=== PATIENT | male | born 1975 | race Caucasian/White ===

== ENCOUNTER 2016-11-29 00:13 | Emergency (ER) | payer OTHER ==
[~2016-11-29 00:13] MED LIST: ALDACTONE50 MG PO; BACTRIM DS TAB1 EACH PO; LASIX40 MG PO; LEVAQUIN500 MG PO; LEVAQUIN750 MG PO; NEXIUM40 MG PO; POTASSIUM CHLO10 ME1 PO; PROTONIX40 MG PO; XIFAXAN550 MG PO
[2016-11-29 01:04] LABS: BASO % 0.3 % (0.2-1.2); EOS # 0.1 10_X3_uL (0.0-0.5); EOS % 2.5 % (0.8-7.0); GRAN # 2.2 10_X3_uL (1.8-5.4); GRAN % 60.4 % (34.0-67.9); HEMOGLOBIN 12.5 g/dL (13.7-17.5); LYMPH % 28.8 % (21.8-53.1); MEAN CORPUSCULAR HEMOGLOBIN 34.4 pg (27.0-33.0); MEAN CORPUSCULAR HGB CONC 33.8 g/dL (32.0-36.0); MEAN CORPUSCULAR VOLUME 101.9 fL (79-92); MEAN PLATELET VOLUME 11.3 fl (7.5-11.5); MONO # 0.3 10_X3_uL (0.3-0.8); PARTIAL THROMBOPLASTIN TIME 31.7 SECONDS (21.3-29.3); PLATELET COUNT 45 x10_3/uL (163-337); RED BLOOD COUNT 3.63 x10_6/uL (4.6-6.1); RED CELL DISTRIBUTION WIDTH 16.6 % (11.6-14.4); WHITE BLOOD COUNT 3.6 x10_3/uL (4.2-9.1)
[2016-11-29 01:10] LABS: ALBUMIN 2.5 gm/dL (3.4-5.0); ALKALINE PHOSPHATASE 110 U/L (50-136); ALT/SGPT 30 U/L (7.53-40.17); AMYLASE 55 U/L (15.62-74.58); AST/SGOT 65 U/L (6.66-35.34); BILIRUBIN,TOTAL 2.99 mg/dL (0.0-1.0); BLOOD UREA NITROGEN 9 mg/dL (7-18); CARBON DIOXIDE 27 mmol/L (21-32); CREATININE 0.6 mg/dL (0.6-1.3); GLUCOSE,RANDOM 105 mg/dL (70-99); LIPASE 42 U/L (6.75-60.75); TOTAL PROTEIN 5.4 gm/dL (6.4-8.2)
[2016-11-29 01:33] LABS: POTASSIUM 3.2 mmol/L (3.5-5.1); SODIUM 142 mmol/L (136-145)
[2016-11-29 01:35] LABS: INR 1.5 (0.9-1.1); PROTHROMBIN TIME (PATIENT) 15.3 SECONDS (9.9-11.1)
[2016-11-29 02:45] LABS: URINE BILIRUBIN 2+ (NEGATIVE); URINE BLOOD 3+ (NEGATIVE); URINE GLUCOSE (UA) NORMAL (NORMAL); URINE KETONE TRACE (NEGATIVE); URINE LEUKOCYTE ESTERASE TRACE (NEGATIVE); URINE NITRATE POSITIVE (NEGATIVE); URINE PROTEIN 1+ (NEGATIVE)
[2016-11-29 03:00] LABS: URINE RBC TNTC /[HPF] (0-2); URINE WBC 0-5 /[HPF] (0-3)
== END 2016-11-29 03:59 | disposition home or self-care (01) ==
LOC: ER 00:13
PROVIDERS: Emergency Medicine
DX: N39.0 Urinary tract infection, site not specified (principal); K74.60 Unspecified cirrhosis of liver; R31.9 Hematuria, unspecified; I85.00 Esophageal varices without bleeding; Z90.49 Acquired absence of other specified parts of digestive tract; Z98.890 Other specified postprocedural states; R11.10 Vomiting, unspecified; Z88.0 Allergy status to penicillin; Z88.1 Allergy status to other antibiotic agents; Z79.899 Other long term (current) drug therapy
CPT/HCPCS: 36415; 74150; 80053; 81001; 82150; 83690; 85025; 85610; 85730; 99283-25

== ENCOUNTER 2016-12-01 18:11 | Emergency (ER) | payer OTHER ==
[2016-12-01 19:43] LABS: URINE BILIRUBIN 1+ (NEGATIVE); URINE BLOOD 3+ (NEGATIVE); URINE GLUCOSE (UA) NORMAL (NORMAL); URINE KETONE TRACE (NEGATIVE); URINE LEUKOCYTE ESTERASE TRACE (NEGATIVE); URINE NITRATE POSITIVE (NEGATIVE); URINE PROTEIN 1+ (NEGATIVE)
[2016-12-01 19:49] LABS: BASO % 0.3 % (0.2-1.2); EOS # 0.1 10_X3_uL (0.0-0.5); EOS % 2.8 % (0.8-7.0); GRAN # 2.1 10_X3_uL (1.8-5.4); GRAN % 65.6 % (34.0-67.9); HEMOGLOBIN 13.4 g/dL (13.7-17.5); LYMPH # 0.8 10_X3_uL (1.3-3.6); LYMPH % 25.5 % (21.8-53.1); MEAN CORPUSCULAR HEMOGLOBIN 34.4 pg (27.0-33.0); MEAN CORPUSCULAR HGB CONC 33.5 g/dL (32.0-36.0); MEAN CORPUSCULAR VOLUME 102.8 fL (79-92); MEAN PLATELET VOLUME 10.9 fl (7.5-11.5); MONO # 0.2 10_X3_uL (0.3-0.8); MONO % 5.8 % (5.3-12.2); RED BLOOD COUNT 3.89 x10_6/uL (4.6-6.1); RED CELL DISTRIBUTION WIDTH 16.5 % (11.6-14.4); WHITE BLOOD COUNT 3.3 x10_3/uL (4.2-9.1)
[2016-12-01 20:00] LABS: URINE BACTERIA TRACE (NONE SEEN); URINE MUCUS 2+; URINE RBC TNTC /[HPF] (0-2); URINE SQUAMOUS EPITHELIAL CELL 0-10 /[HPF] (NONE SEEN); URINE WBC 0-5 /[HPF] (0-3)
[2016-12-01 20:05] LABS: ALBUMIN 2.9 gm/dL (3.4-5.0); ALKALINE PHOSPHATASE 125 U/L (50-136); ALT/SGPT 31 U/L (7.53-40.17); AST/SGOT 67 U/L (6.66-35.34); BLOOD UREA NITROGEN 10 mg/dL (7-18); CARBON DIOXIDE 28 mmol/L (21-32); CREATININE 0.8 mg/dL (0.6-1.3); GLUCOSE,RANDOM 94 mg/dL (70-99); POTASSIUM 3.3 mmol/L (3.5-5.1); SODIUM 141 mmol/L (136-145)
[2016-12-01 20:06] LABS: INR 1.6 (0.9-1.1); PARTIAL THROMBOPLASTIN TIME 32.2 SECONDS (21.3-29.3); PROTHROMBIN TIME (PATIENT) 16.6 SECONDS (9.9-11.1)
[2016-12-01 20:07] LABS: BILIRUBIN,TOTAL 2.84 mg/dL (0.0-1.0)
[2016-12-01 20:31] LABS: PLATELET COUNT 47 x10_3/uL (163-337)
== END 2016-12-01 21:04 | disposition home or self-care (01) ==
LOC: ER 18:11
PROVIDERS: Internal Medicine
DX: K74.60 Unspecified cirrhosis of liver (principal); R31.9 Hematuria, unspecified; R10.9 Unspecified abdominal pain; R60.9 Edema, unspecified; R18.8 Other ascites; E11.9 Type 2 diabetes mellitus without complications; Z88.0 Allergy status to penicillin; Z88.1 Allergy status to other antibiotic agents; Z79.899 Other long term (current) drug therapy
CPT/HCPCS: 36415; 80053; 81001; 82009; 82550; 83880; 85025; 85610; 85730; 99283

== ENCOUNTER 2017-01-01 00:55 | Emergency (ER) | payer OTHER | END 2017-01-01 01:58 | disposition home or self-care (01) | LOC: ER 00:55 | DX: K62.89 Other specified diseases of anus and rectum (principal); K64.4 Residual hemorrhoidal skin tags; K75.81 Nonalcoholic steatohepatitis (NASH); Z88.0 Allergy status to penicillin; Z88.1 Allergy status to other antibiotic agents; Z88.8 Allergy status to other drugs, medicaments and biological substances; Z79.899 Other long term (current) drug therapy; Z79.1 Long term (current) use of non-steroidal anti-inflammatories (NSAID) | CPT/HCPCS: 99282 ==